=== PATIENT | female | born 1970 | race African-American/Black ===

== ENCOUNTER 2018-06-18 13:23 | Outpatient (CLI) | payer OTHER ==
--- NOTE | 2018-06-18 14:54 | Ultrasound Report ---
Pelvic ultrasound: Dysfunctional uterine bleeding. Endovaginal and transabdominal imaging demonstrates an anteverted uterus measuring 6.0 x 7.3 x 12.4 cm. In the fundus 2 inhomogeneously hypoechoic masses are noted. One measures 2.8 cm and the other 3.8 cm. The myometrium is otherwise remarkable. The endometrial thickness is estimated at 6.4 mm but not sharply identified. No endometrial lesion is identified. There is a grouping of nabothian cysts in the cervix with the largest approximately 2 cm in size. The left ovary is not identified by either approach. The right ovary is identified on endovaginal imaging and measures 16 mm in size. It is echogenically unremarkable. Impression: Uterine fibroids.
== END 2018-06-18 13:24 | disposition home or self-care (01) ==
LOC: US 13:23
PROVIDERS: ATTEND Obstetrics & Gynecology
DX: D25.9 Leiomyoma of uterus, unspecified (principal)
CPT/HCPCS: 76830; 76856

== ENCOUNTER 2018-09-09 11:39 | Outpatient (CLI) | payer OTHER ==
--- NOTE | 2018-09-09 13:11 | Fluoroscopy Report ---
BARIUM SWALLOW: History: Dysphagia, pain. The patient swallows barium without difficulty demonstrating normal coordination. The cervical and thoracic portions of the esophagus demonstrate normal contours and there is normal peristalsis. There is no evidence of a hiatus hernia and no reflux is demonstrated. The patient was able to ingest and pass a barium tablet through the esophagus without difficulty. IMPRESSION: No abnormality is identified.
== END 2018-09-09 11:40 | disposition home or self-care (01) ==
LOC: FLUORO 11:39
PROVIDERS: ATTEND Family Medicine
DX: R13.19 Other dysphagia (principal); E11.9 Type 2 diabetes mellitus without complications; I10 Essential (primary) hypertension; K21.9 Gastro-esophageal reflux disease without esophagitis; E03.9 Hypothyroidism, unspecified; Z90.710 Acquired absence of both cervix and uterus
CPT/HCPCS: 74220